=== PATIENT | female | born 1990 | race Two or more races ===

== ENCOUNTER 2018-06-04 06:33 | Inpatient (IN) | payer BC ==
[~2018-06-04] VITALS: Ht 160 cm; Wt 176.0 kg
[~2018-06-04 06:33] MED LIST: M/A; ZANTAC150 MG PO
[2018-06-05] MEDS ORDERED: FOLIC ACID0.4 MG PO (12:16)
[2018-06-05] MEDS ORDERED: OBSTETRIX DHA1 EACH PO (12:16)
[2018-06-05] MEDS ORDERED: SYNTHROID125 MCG PO (12:17)
== END 2018-06-06 14:12 | disposition home or self-care (01) | DRG 807 ==
LOC: LDR 06:33 → SURG-SUITE 11:13
PROC: 10E0XZZ Delivery of Products of Conception, External Approach (ICD-10-PCS; principal; 2018-06-04)
PROC: 0HQ9XZZ Repair Perineum Skin, External Approach (ICD-10-PCS; 2018-06-04)
PROC: 4A1HXCZ Monitoring of Products of Conception, Cardiac Rate, External Approach (ICD-10-PCS; 2018-06-04)
DX: O70.0 First degree perineal laceration during delivery (principal); Z37.0 Single live birth; Z3A.38 38 weeks gestation of pregnancy